=== PATIENT | male | born 1960 | race Caucasian/White ===

== ENCOUNTER 2017-01-04 19:21 | Observation (INO) | payer BC ==
--- NOTE | 2017-01-04 19:30 | PDOC ---
History of Present Illness - General History Source: Patient, Family Exam Limitations: No Limitations <Justin Valerio - Last Filed: 01/04/17 20:36> - General History Source: Patient Exam Limitations: No Limitations <Lesli Yates I - Last Filed: 01/04/17 21:08> - General Chief Complaint: Chest Pain Stated Complaint: high bloodpressure Time Seen by Provider: 01/04/17 19:24 - History of Present Illness Initial Comments: 01/04/17 19:47 The patient is a 56 year old male, with a significant past medical history of seizures, hypertension, hyperlipidemia, sleep apnea, who presents to the emergency department complaining of lightheadedness and slight chest discomfort beginning this morning. The patient reports he did not feel well today and his sister in law checked his blood pressure with an automatic blood pressure machine that detected a high blood pressure. The patient reports he called his PCP Dr. Contreras who advised he go to the ED for evaluation. The patient reports associated symptoms of diaphoresis. He denies recent shortness of breath. He denies recent nausea or vomit. He denies double vision, blurry vision, headache or calf tenderness. PAST MEDICAL HISTORY: seizures, hypertension, hyperlipidemia, sleep apnea PAST SURGICAL HISTORY: no significant history FAMILY HISTORY: no pertinent history SOCIAL HISTORY: Pt lives with family and is employed. MEDICATIONS: reviewed ALLERGIES: As per nursing notes ROS General: No fevers or chills, no weakness, no weight loss HEENT: No change in vision. No sore throat,. No ear pain CardioVascular: +Chest discomfort. No shortness of breath Respiratory: No cough, or wheezing. Gastrointestinal: no nausea, vomiting, diarrhea or constipation, No rectal bleeding Neurologic: +Dizziness. No headache, vertigo, or loss of consciousness Skin: No rashes or easy bruising All other systems reviewed and normal Exam: General: +Mildly diaphoretic. Well-nourished well-developed individual, Eyes::Pupils equal reactive and round, extraocular motion intact Chest: Nontender to palpation Cardiac: S1-S2 normal, regular rate and rhythm, no murmurs rubs or gallops Respiratory: Lungs clear to auscultation bilateral Skin: No rashes Neuro: Alert and oriented x3, nonfocal exam, grossly intact, normal gait (Justin Valerio) 01/04/17 21:05 A portion of this note was documented by scribe services under my direction. I have reviewed the details of the note, within reason, and agree with the documentation. The case summary and management plan written by me. Assessment and plan: This is a 56-year-old male who comes in complaining of feeling lightheaded and dizzy throughout most of the day and some associated chest pressure. Here in the emergency room patient was slightly diaphoretic and complaining of chest pressure as well. Patient has multiple risk factors for coronary artery disease. Patient's cardiogram was normal Patient's initial troponin was negative and his chest x-ray shows cardiomegaly otherwise no acute pathology Patient will be placed in an observation bed for an additional 2 sets of enzymes. (Lesli Yates I) Past History <Justin Valerio - Last Filed: 01/04/17 20:36> - Past Medical History HTN: Yes Seizures: Yes - Suicide/Smoking/Psychosocial Hx Smoking History: Never smoked Hx Alcohol Use: Yes (SOCIALLY) Drug/Substance Use Hx: No <Lesli Yates I - Last Filed: 01/04/17 21:08> - Past Medical History Allergies/Adverse Reactions: Allergies Allergy/AdvReac Type Severity Reaction Status Date / Time No Known Drug Allergies Allergy Verified 01/04/17 19:29 Home Medications: Ambulatory Orders Carbamazepine [Tegretol -] 400 mg PO BID #0 tablet 03/22/13 Losartan Potassium [Cozaar -] 100 mg PO DAILY #0 tablet 03/22/13 Cholecalciferol (Vitamin D3) [Vitamin D -] 5,000 mg PO WEEKLY 01/04/17 Ezetimibe 10 mg PO ONCE 01/04/17 Hydrochlorothiazide 25 mg PO ONCE 01/04/17 Nifedipine [Nifedical Xl] 90 mg PO DAILY 01/04/17 Simvastatin 40 mg PO ONCE 01/04/17 - Vital Signs Last Vital Signs Temp Pulse Resp BP Pulse Ox 99.2 F 84 20 137/92 95 01/04/17 19:24 01/04/17 20:24 01/04/17 19:24 01/04/17 20:24 01/04/17 20:24 Heart Score/ECG Review <Justin Valerio - Last Filed: 01/04/17 20:36> - History History: Slightly suspicious - Electrocardiogram EKG: Non specific repolarization disturbance - Age Age: 45-65 - Risk Factors Risk Factors Heart Score: Yes Hx Hypercholesterolemia, Yes Hx Hypertension, Yes Hx Obesity Based on the list above the patient has:: >/=3 risk factors or Hx atherosclerotic disease - Troponin Troponin: </= normal limit - Score Heart Score - Total: 4 <Lesli Yates I - Last Filed: 01/04/17 21:08> #1 01/04/17 20:34 Normal Sinus rhythm Normal ECG Vent rate [address] interval 176 ms QRS duration 104 ms QT/QTc 378/439 ms P-R-T axes 6 31 30 (Justin Valerio) ED Treatment Course - LABORATORY CBC & Chemistry Diagram: 01/04/17 19:45 01/04/17 19:45 <Justin Valerio - Last Filed: 01/04/17 20:36> - LABORATORY CBC & Chemistry Diagram: 01/04/17 19:45 01/04/17 19:45 <Lesli Yates I - Last Filed: 01/04/17 21:08> - ADDITIONAL ORDERS Additional order review: Laboratory Results 01/04/17 01/04/17 19:45 19:45 Sodium 136 Potassium 3.5 Chloride 99 Carbon Dioxide 29 H Anion Gap 8 BUN 16 Creatinine 1.0 Creat Clearance w eGFR > 60 Random Glucose 104 Calcium 8.6 Total Bilirubin 0.4 AST 26 ALT 28 Alkaline Phosphatase 82 Creatine Kinase 178 Creatine Kinase Index 0.8 CK-MB (CK-2) 1.6 Troponin I < 0.03 L Total Protein 7.1 Albumin 4.2 01/04/17 19:45 RBC 5.08 MCV 88.8 MCHC 34.8 RDW 12.7 MPV 9.1 Neutrophils % 65.6 Lymphocytes % 24.0 Monocytes % 7.7 Eosinophils % 1.4 Basophils % 1.3 - RADIOLOGY Radiology Studies Ordered: Category Date Time Status CHEST X-RAY PORTABLE* [RAD] Stat Radiology 01/04/17 19:36 Taken - Medications Given in the ED: ED Medications Discontinued Medications Generic Name Dose Route Start Last Admin Trade Name Freq PRN Reason Stop Dose Admin Aspirin 325 mg 01/04/17 19:44 01/04/17 19:53 Asa - PO 01/04/17 19:45 325 mg ONCE ONE Administration Nitroglycerin 1 inch 01/04/17 19:44 01/04/17 19:53 Nitro-Bid 2% Paste - TD 01/04/17 19:45 1 inch ONCE ONE Administration *DC/Admit/Observation/Transfer <Justin Valerio - Last Filed: 01/04/17 20:36> - Discharge Dispostion Admit: Yes <Lesli Yates I - Last Filed: 01/04/17 21:08> Diagnosis at time of Disposition: Chest pain Qualifiers: Chest pain type: unspecified Qualified Code(s): R07.9 - Chest pain, unspecified ; R07.9 - Chest pain, unspecified - Referrals Referrals: Venice Ny MD [Primary Care Provider] - - Attestations Scribe Attestion: 01/04/17 19:53 Documentation prepared by Justin Valerio, acting as er medical technician for Lesli Yates MD. (Justin Valerio)
[2017-01-04] MEDS ORDERED: ASPIRIN 81 MG CHEWABLE TABLETS PO ONE (19:44)
[2017-01-04] MEDS ORDERED: NITROGLYCERIN 2% OINTMENT - 1GM PACKET TD ONE ×2 (19:44→19:51)
[2017-01-04] MEDS ORDERED: ASPIRIN 325 MG TABLET ONE (19:50)
[2017-01-04 19:57] LABS: BASOPHIL 1.3 % (0-2.0); EOSINOPHIL 1.4 % (0-4.5); MCH 30.9 pg (25.7-33.7); MCHC 34.8 g/dl (32.0-35.9); MEAN CELL VOLUME 88.8 fl (80-96); MEAN PLT VOLUME 9.1 fl (7.5-11.1); NEUTROPHILS 65.6 % (42.8-82.8); PLATELET COUNT 222 K/MM3 (134-434); RDW 12.7 % (11.9-15.9); WHITE BLOOD COUNT 9.1 K/mm3 (4.0-10.8)
[2017-01-04 20:20] LABS: ALBUMIN 4.2 g/dl (3.5-5.0); ALK PHOS 82 U/L (32-92); ANION GAP 8 (8-16); BILIRUBIN,TOTAL 0.4 mg/dl (0.2-1.0); CALCIUM 8.6 mg/dl (8.4-10.2); CO2 29 mmol/L (22-28); CPK 178 IU/L (39-308); GLUCOSE,RANDOM 104 mg/dl (74-106); SGOT/AST 26 U/L (10-42); SGPT/ALT 28 U/L (10-40); TOT PROT 7.1 g/dl (6.4-8.3)
[2017-01-04 20:46] LABS: TROPONIN I (DFP) < 0.03 ng/ml (0.03-0.50)
[2017-01-04 22:42] VITALS: BMI 35.7
[2017-01-04] MEDS ORDERED: LOSARTAN POTASSIUM 100 MG TABLET PO ONE (23:30)
[2017-01-04] MEDS ORDERED: ATORVASTATIN CA 20 MG TABLET (FP) PO ONE (23:30)
[2017-01-04] MEDS ORDERED: NIFEdipine E.R. 90 MG TABLET (FP) PO ONE (23:30)
[2017-01-04] MEDS ORDERED: carBAMazepine 200 MG TABLET PO ONE (23:30)
--- NOTE | 2017-01-05 00:22 | HP ---
Admitting History and Physical - Admission Chief Complaint: chest pain History of Present Illness: The patient is a 56 year old male, with a significant PMH of seizures, HTN, HLD , sleep apnea, obesity who presents to the emergency department complaining of lightheadedness and slight chest discomfort beginning this morning. The patient reports he did not feel well today and his sister in law checked his blood pressure with an automatic blood pressure machine that detected a high blood pressure. 180/110, during which time he reported chest pressure, and as per family was "red and flushed". The patients family contacted me, due to patients risk factors and presenting sx -he was referred to ER for further evaluation. At the ER the patient reports associated symptoms of diaphoresis. He denies shortness of breath, N / V / headaches / visual disturbances. 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 Cardiovascular: Yes: HTN, Hyperlipdemia Gastrointestinal: Yes: Diverticulosis Endocrine: Yes: Diabetes Insipidus - Smoking History Smoking history: Never smoked Have you smoked in the past 12 months: No - Alcohol/Substance Use Hx Alcohol Use: Yes (SOCIALLY) History of Substance Use: reports: None - Social History Usual Living Arrangement: Yes: With Spouse ADL: Independent History of Recent Travel: No Home Medications - Allergies Allergies/Adverse Reactions: Allergies Allergy/AdvReac Type Severity Reaction Status Date / Time No Known Drug Allergies Allergy Verified 01/04/17 19:29 - Home Medications Home Medications: Ambulatory Orders Carbamazepine [Tegretol -] 400 mg PO BID #0 tablet 03/22/13 Cholecalciferol (Vitamin D3) [Vitamin D -] 5,000 mg PO WEEKLY 01/04/17 Ezetimibe 10 mg PO ONCE 01/04/17 Hydrochlorothiazide 25 mg PO DAILY 01/04/17 Losartan Potassium [Cozaar -] 100 mg PO HS 01/04/17 Nifedipine [Nifedical Xl] 90 mg PO HS 01/04/17 Simvastatin 40 mg PO HS 01/04/17 Review of Systems - Review of Systems Constitutional: reports: Diaphoresis Eyes: reports: No Symptoms HENT: reports: No Symptoms Neck: reports: No Symptoms Cardiovascular: reports: Chest Pain. denies: Edema, Palpitations, Shortness of Breath Respiratory: reports: Snoring. denies: Cough, Exercise Intolerance, SOB, Wheezing Gastrointestinal: reports: No Symptoms Genitourinary: reports: No Symptoms Breasts: reports: No Symptoms Reported Musculoskeletal: reports: No Symptoms Integumentary: reports: No Symptoms Neurological: reports: No Symptoms Endocrine: reports: Flushing Hematology/Lymphatic: reports: No Symptoms Psychiatric: reports: No Symptoms Physical Examination Vital Signs: Vital Signs Temperature 97.8 F 01/04/17 23:28 Pulse Rate 81 01/04/17 23:28 Respiratory Rate 18 01/04/17 23:28 Blood Pressure 136/88 01/04/17 23:28 O2 Sat by Pulse Oximetry (%) 99 01/04/17 21:55 Constitutional: Yes: Well Nourished, No Distress, Diaphoresis (mild) HENT: Yes: WNL, Atraumatic, Normocephalic Neck: Yes: WNL, Supple, Trachea Midline Cardiovascular: Yes: WNL, Regular Rate and Rhythm Respiratory: Yes: WNL, Regular, CTA Bilaterally Gastrointestinal: Yes: WNL, Abdomen, Obese ...Rectal Exam: Yes: Deferred, Hemorrhoids/Internal Breast(s): Yes: WNL Musculoskeletal: Yes: WNL Extremities: Yes: WNL Edema: No Peripheral Pulses: Left Radial: 2+, Right Radial: 2+, Left Doralis Pedis: 2+, Right Dorsalis Pedis: 2+, Left Femoral: 2+, Right Femoral: 2+ Integumentary: Yes: WNL ...Motor Strength: WNL Psychiatric: Yes: WNL Problem List - Problems (1) Hypertension Code(s): I10 - ESSENTIAL (PRIMARY) HYPERTENSION (2) Hyperlipemia Code(s): E78.5 - HYPERLIPIDEMIA, UNSPECIFIED (3) Seizure Code(s): R56.9 - UNSPECIFIED CONVULSIONS (4) Sleep apnea Code(s): G47.30 - SLEEP APNEA, UNSPECIFIED (5) Obesity Code(s): E66.9 - OBESITY, UNSPECIFIED (6) Obesity (BMI 30-39.9) Code(s): E66.9 - OBESITY, UNSPECIFIED Assessment/Plan # chest pain - ischemia?, / 2/2 to HTN - risk factors uncontrolled HTN, HLD, sleep apnea , obesity - serial TNI & EKG / monitor BP - Cardiology consult in the am-- Dr Gitigs' group # HTN - resume bp meds - low salt diet - calorie control - adjust medication for improved Bp control # seizure - no recent seizure - continue tegretol # HLD - resume statins - low cholesterol diet # sleep apnea - recommend weight loss - Bipap at night # obesity - weight loss
[2017-01-05 06:40] VITALS: BP 134/58; PULSE 68; TEMP 97.7
--- NOTE | 2017-01-05 08:20 | CON.CARD ---
Consult Consult Specialty:: cardiology Referred by:: rolando Reason for Consultation:: LH, cp - History of Present Illness Chief Complaint: same History of Present Illness: 56 year old male presents to the emergency department complaining of lightheadedness and slight chest discomfort. says his bp has been difficult to control on current med regimen for a while now , frequently with home bp's 150-160/90s. yest was highest he's seen ever. usually does not feel any sx's with hi bp readings. yest felt LH (no presyncope) and mild tightness/pressure substernal region. cp not radiating. assctd diaph, no sob. appeared flushed in face as well per family. had outpt stress test 3 mo ago (sees cardio in pmd office) reportedly negative. dx'd MOI as well at that time, complying with bipap x 2 mo now. no etoh abuse. 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 Cardio/Vascular: Yes: HTN, Hyperlipdemia Gastrointestinal: Yes: Diverticulosis Endocrine: Yes: Diabetes Insipidus - Alcohol/Substance Use Hx Alcohol Use: Yes (SOCIALLY) History of Substance Use: reports: None - Smoking History Smoking history: Never smoked Have you smoked in the past 12 months: No - Social History ADL: Independent History of Recent Travel: No Home Medications - Allergies Allergies/Adverse Reactions: Allergies Allergy/AdvReac Type Severity Reaction Status Date / Time No Known Drug Allergies Allergy Verified 01/04/17 19:29 - Home Medications Home Medications: Ambulatory Orders Carbamazepine [Tegretol -] 400 mg PO BID #0 tablet 03/22/13 Cholecalciferol (Vitamin D3) [Vitamin D -] 5,000 mg PO WEEKLY 01/04/17 Ezetimibe 10 mg PO ONCE 01/04/17 Hydrochlorothiazide 25 mg PO DAILY 01/04/17 Losartan Potassium [Cozaar -] 100 mg PO HS 01/04/17 Nifedipine [Nifedical Xl] 90 mg PO HS 01/04/17 Simvastatin 40 mg PO HS 01/04/17 Vital Signs: Vital Signs Temperature 97.7 F 01/05/17 06:38 Pulse Rate 68 01/05/17 06:38 Respiratory Rate 18 01/05/17 06:38 Blood Pressure 134/58 01/05/17 06:38 O2 Sat by Pulse Oximetry (%) 98 01/05/17 07:49 - Other Data Labs, Other Data: Laboratory Tests 01/04/17 01/04/17 01/04/17 19:45 19:45 19:45 WBC 9.1 Hgb 15.7 Plt Count 222 Sodium 136 Potassium 3.5 Carbon Dioxide 29 H BUN 16 Creatinine 1.0 AST 26 ALT 28 Creatine Kinase 178 Troponin I < 0.03 L Assessment/Plan EKG #1 (01/04, 20:21): NSR, normal axis/intervals; borderline inferior Q waves; no ST-T abn (no change vs 03/18/2013) #2: no change tele: NSR, no events CXR: clear lungs/pleura MPI 10/06: 7 min Shravan; no STs; no ischemia/infarct; nl EF (no TID noted) lightheadedness: -suspect sec to acute bp elevation at home -bp's controlled here in hospital atyp CP: -subtle, mild sx likely due to hi bp +/- anxiety from other hi bp sx's at the time ()...of note, bp yest was much higher than he's had in past hence not unexpected to have sx's from this -had negative nuclear stress perfusion scans 10/06 -serial ecg's here no ischemic changes -first set enzymes neg--f/u repeat this am -if 2nd set enzymes negative and he remains without further ischemic type sx's, i would defer further ischemia evaluation and monitor for recurrent sx's once bp better controlled HTN: -hi bp spike at home on DOA with assctd sx's -well controlled bp at present -per pt, bp is frequently uncontrolled at home. -rec change hctz to chlorthalidone and change losartan to valsartan or olmesartan (alternate ARB with longer half-life and greater bp lowering efficacy ) -add KCL 20 qd (low-nl K here) -outpt bp f/u on this new regimen: given relatively high incidence of functional hyperaldosteronism in obese pt's with resistant htn (and pt with low- nl K noted here), would next consider spironolactone add-on if bp remains uncontrolled with the above med changes HPL: -primary prevention -on simva 40/zetia at home--cont same -outpt lipids f/u
--- NOTE | 2017-01-05 08:53 | EKG ---
Test Reason : Blood Pressure : / mmHG Vent. Rate : 081 BPM Atrial Rate : 081 BPM P-R Int : 176 ms QRS Dur : 104 ms QT Int : 378 ms P-R-T Axes : 006 031 030 degrees QTc Int : 439 ms NORMAL SINUS RHYTHM NORMAL ECG WHEN COMPARED WITH ECG OF 18-MAR-2013 03:25, NO SIGNIFICANT CHANGE WAS FOUND Confirmed by CATHIE GONZALEZ MD ([id number] on 01/05/2017 8:52:58 AM Referred By: TASIA STALLINGS Confirmed By:CATHIE GONZALEZ MD
[2017-01-05 09:28] LABS: MCH 30.3 pg (25.7-33.7); MCHC 33.9 g/dl (32.0-35.9); MEAN CELL VOLUME 89.4 fl (80-96); MEAN PLT VOLUME 9.3 fl (7.5-11.1); PLATELET COUNT 195 K/MM3 (134-434); RDW 12.6 % (11.9-15.9); WHITE BLOOD COUNT 7.6 K/mm3 (4.0-10.8)
[2017-01-05] MEDS ORDERED: PT OWN MED DRAWER 7, Y5N ONE (09:35)
[2017-01-05 09:47] LABS: ALK PHOS 78 U/L (32-92); ANION GAP 9 (8-16); BILIRUBIN,TOTAL 0.8 mg/dl (0.2-1.0); CALCIUM 8.8 mg/dl (8.4-10.2); CHOLESTEROL 164 mg/dl; CO2 31 mmol/L (22-28); CREATININE 0.9 mg/dl (0.6-1.3); GLUCOSE,RANDOM 94 mg/dl (74-106); MAGNESIUM 2.2 mg/dL (1.8-2.4); SGOT/AST 22 U/L (10-42); SGPT/ALT 29 U/L (10-40); TOT PROT 6.6 g/dl (6.4-8.3)
[2017-01-05] MEDS ORDERED: carBAMazepine XR 400 MG TAB.ER.12H PO SCH (10:00)
[2017-01-05] MEDS ORDERED: ASPIRIN COATED 81 MG TABLET.EC PO SCH (10:00)
[2017-01-05] MEDS ORDERED: NIFEdipine E.R. 90 MG TABLET (FP) PO SCH (10:00)
[2017-01-05] MEDS ORDERED: VALSARTAN 160 MG TABLET (UD) PO SCH (10:00)
[2017-01-05] MEDS ORDERED: POTASSIUM CHLORIDE TABS 20 MEQ TABLET.ER (FP) PO SCH (10:00)
[2017-01-05] MEDS ORDERED: HYDROCHLOROTHIAZIDE 25 MG TABLET (FP) PO SCH (10:00)
[2017-01-05] MEDS ORDERED: LOSARTAN POTASSIUM 50 MG TABLET (FP) PO SCH (10:00)
[2017-01-05] MEDS ORDERED: CHLORTHALIDONE 25 MG TABLET PO SCH (10:00)
--- NOTE | 2017-01-05 10:51 | PN ---
Progress Note (short form) - Note Progress Note: case discussed with Dr Cazares this am patient remains chest pain free since last night denies disphoresis / SOB / N/ V Vital Signs Period Temp Pulse Resp BP Sys/Martinez Pulse Ox Last 24 Hr 97.7 F-99.2 F 65-92 18-20 132-157/58-99 95-99 neck suppl no JVD Heart S1S2 Lungs clear bilat abd soft non tender obese ext no edema + 2 pulses CBC, BMP 01/05/17 07:27 01/05/17 07:27 Active Medications Aspirin (Ecotrin -) 162 mg PO DAILY [facility] Last Admin: 01/05/17 09:48 Dose: 162 mg Atorvastatin Calcium (Lipitor -) 80 mg PO HS [facility] Carbamazepine (Tegretol Xr -) 400 mg PO BID [facility] Chlorthalidone (Hygroton -) 25 mg PO DAILY [facility] Last Admin: 01/05/17 09:48 Dose: 25 mg Nifedipine (Procardia Xl -) 90 mg PO DAILY [facility] Last Admin: 01/05/17 09:49 Dose: 90 mg Potassium Chloride (K-Dur -) 20 meq PO DAILY [facility] Last Admin: 01/05/17 09:48 Dose: 20 meq Valsartan (Diovan -) 320 mg PO DAILY [facility] Last Admin: 01/05/17 09:47 Dose: 320 mg change to valsartan and CHlorthalidone instead of losartan and HCTZ review of lipd profile adequate on current regimine, will continue Assessment/Plan # chest pain - appreciate cardio consult / med change as per recommendations - Sx probably 2ary to uncontrolled BP - risk factors uncontrolled HTN, HLD, sleep apnea , obesity - serial TNI & EKG negative for ischemia - Bp controlled during the night # HTN - d/c Losartan / HTCZ - start Valsartan / Chlorthalidone - low salt diet - calorie control - monitor BP as out patient # seizure - no recent seizure - continue tegretol # HLD - resume statins - adequate lipid profile - low cholesterol diet # sleep apnea - recommend weight loss - Bipap at night # obesity - weight loss Problem List - Problems (1) Hypertension Code(s): I10 - ESSENTIAL (PRIMARY) HYPERTENSION (2) Hyperlipemia Code(s): E78.5 - HYPERLIPIDEMIA, UNSPECIFIED (3) Seizure Code(s): R56.9 - UNSPECIFIED CONVULSIONS (4) Sleep apnea Code(s): G47.30 - SLEEP APNEA, UNSPECIFIED (5) Obesity Code(s): E66.9 - OBESITY, UNSPECIFIED (6) Obesity (BMI 30-39.9) Code(s): E66.9 - OBESITY, UNSPECIFIED
[2017-01-05] MEDS ORDERED: ATORVASTATIN CA 80 MG TABLET (FP) PO SCH (22:00)
--- NOTE | 2017-01-06 23:02 | EKG ---
Test Reason : Blood Pressure : / mmHG Vent. Rate : 069 BPM Atrial Rate : 069 BPM P-R Int : 208 ms QRS Dur : 110 ms QT Int : 414 ms P-R-T Axes : 048 024 022 degrees QTc Int : 443 ms NORMAL SINUS RHYTHM NORMAL ECG WHEN COMPARED WITH ECG OF 04-JAN-2017 20:21, NO SIGNIFICANT CHANGE WAS FOUND Confirmed by HARPAL RUEDA MD ([id number] on 01/06/2017 11:02:37 PM Referred By: DR GARZA Confirmed By:HARPAL RUEDA MD
== END 2017-01-05 12:00 | disposition home or self-care (01) ==
LOC: FER 19:21 → FM/S 21:51
PROVIDERS: ADMIT Family Medicine; ATTEND Family Medicine
DX: R07.89 Other chest pain (principal); R42 Dizziness and giddiness; I10 Essential (primary) hypertension; E78.5 Hyperlipidemia, unspecified; G47.30 Sleep apnea, unspecified; G40.909 Epilepsy, unspecified, not intractable, without status epilepticus; E66.9 Obesity, unspecified; Z68.35 Body mass index [BMI] 35.0-35.9, adult
CPT/HCPCS: 36415; 71010-TC; 80053; 80061; 82550; 82553; 83735; 84484; 85025; 85027; 93005; 99285-25; G0378

== ENCOUNTER 2024-04-09 18:01 | Emergency (ER) | payer BC ==
[2024-04-09 18:08] VITALS: BP 133/75; PULSE 79; RESP 18; TEMP 98.6; BMI 23.7
== END 2024-04-09 23:20 | disposition home or self-care (01) ==
LOC: JERFT 18:01
DX: R59.0 Localized enlarged lymph nodes (principal); K11.1 Hypertrophy of salivary gland; R68.84 Jaw pain
CPT/HCPCS: 76536-TC; 99284-25